=== PATIENT | female | born 1980 | race African-American/Black ===

== ENCOUNTER 2018-03-07 12:17 | Emergency (ER) | payer BC ==
[2018-03-07] MEDS ORDERED: Acetaminophen 500 MG TAB ONE (12:41)
== END 2018-03-07 13:13 | disposition home or self-care (01) ==
LOC: ERS 12:17
DX: S56.912A Strain of unspecified muscles, fascia and tendons at forearm level, left arm, initial encounter (principal); X50.3XXA Overexertion from repetitive movements, initial encounter; Y92.69 Other specified industrial and construction area as the place of occurrence of the external cause
CPT/HCPCS: 29125

== ENCOUNTER 2018-10-19 13:15 | Emergency (ER) | payer BC ==
--- NOTE | 2018-10-19 14:03 | RAD ---
2 VIEWS CHEST: Date: 10/19/18 COMPARISON: None. HISTORY: Chest congestion and cough for 3 days. FINDINGS: Two views of the chest show normal sized cardiomediastinal silhouette. There is no evidence of consol idation, mass, or pleural effusion. The bones are unremarkable. IMPRESSION: No evidence of acute cardiopulmonary disease. POS: [facility]
[2018-10-19] MEDS ORDERED: Ibuprofen 800 MG TAB ONE (14:10)
== END 2018-10-19 14:15 | disposition home or self-care (01) ==
LOC: ERS 13:15
DX: J06.9 Acute upper respiratory infection, unspecified (principal)
CPT/HCPCS: 71046